=== PATIENT | female | born 1995 | race Caucasian/White ===

== ENCOUNTER 2017-08-11 12:43 | Emergency (ER) | payer OTHER ==
[~2017-08-11] VITALS: Ht 165.1 cm; Wt 70.3 kg
[~2017-08-11 12:43] MED LIST: CIPR-344 PO; HYDR-4309 PO; ONDA4TAB97 PO
[2017-08-11] MEDS ORDERED: ETON1VAG7 VG (12:51)
[2017-08-11] MEDS ORDERED: BUPR-474 PO (12:51)
[2017-08-11 12:52] VITALS: BP 149/107
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
[2017-08-11] MEDS ORDERED: IBUPROFEN 600 MG TAB PO ONE (13:25)
[2017-08-11] MEDS ORDERED: METRONIDAZOLE 500 MG TABLET PO ONE ×2 (13:25→14:48)
[2017-08-11] MEDS ORDERED: AZITHROMYCIN 250 MG TAB PO ONE (13:25)
[2017-08-11] MEDS ORDERED: LEVONORGESTREL 1.5 MG TAB PO ONE (13:25)
[2017-08-11] MEDS ORDERED: cefTRIAXone 250 MG VIAL IM ONE (13:25)
[2017-08-11] MEDS ORDERED: LIDOCAINE 1%MDV(*)200 MG/20 ML 1 ML ONE (14:49)
== END 2017-08-11 15:25 | disposition home or self-care (01) ==
LOC: ER 12:55
DX: T74.21XA Adult sexual abuse, confirmed, initial encounter (principal); S60.211A Contusion of right wrist, initial encounter; S50.811A Abrasion of right forearm, initial encounter; M79.631 Pain in right forearm; S80.01XA Contusion of right knee, initial encounter; S80.02XA Contusion of left knee, initial encounter; S31.41XA Laceration without foreign body of vagina and vulva, initial encounter; S30.23XA Contusion of vagina and vulva, initial encounter; M79.89 Other specified soft tissue disorders
CPT/HCPCS: 36415; 80305; 86703; 87491; 87591; 96372; 99282; A9270; J0696; J2001; Q0144